=== PATIENT | male | born 1965 | race Hispanic/Latino ===

== ENCOUNTER 2018-06-02 11:54 | Emergency (ER) | payer OTHER ==
[2018-06-02] MEDS ORDERED: Oxycodone/Acetaminophen 5/325 mg Tab PO STA (12:26)
--- NOTE | 2018-06-02 12:27 | ED PDOC ---
Arrival/HPI - General Historian: Patient - History of Present Illness Time/Duration: Prior to Arrival, 1 hour Symptom Onset: Sudden Symptom Course: Unchanged Quality: Stabbing Severity Level: 7 Activities at Onset: Significant Context: Work <Ramon Buchanan - Last Filed: 06/02/18 13:27> <Peyton Rodas - Last Filed: 06/02/18 13:41> - General Chief Complaint: Upper Extremity Problem/Injury Time Seen by Provider: 06/02/18 12:00 - History of Present Illness Narrative History of Present Illness (Text): 06/02/18 12:22 CC: L shoulder pain HPI: Mr. Varghese is a 53 year old male with a past medical history of HTN and HLD both controlled with unnamed medications who presents with L shoulder pain. Patient reports severe pain in his left shoulder which he rates as a 7/10. 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 Patient was lifting a beam from the ground to lean up against something and felt a sharp, stabbing pain in his Left shoulder about jail in the lift. Patient continued to push through the pain and lift the beam until it settled, and then reported pain that inhibited movement. Patient then drove himself to [place] [facility] [place]. Of note, patient reports a Left shoulder labrum and rotator cuff tear and repair back in 2014 at [facility]. Patient denies fevers, chills, chest pain, shortness of breath, tingling and numbness down his extremities. PMHx: HTN and HLD PSHx: Appendectomy, tonsillectomy, hernia repair, L labrum and rotator cuff tear repair All: Penicillin Meds: patient could not recall HTN and HLD medications PCP: Dr. Maya ([place]) (Ramon Buchanan) Past Medical History - Provider Review Nursing Documentation Reviewed: Yes - Travel History Have you recently traveled outside [place] w/in the past 3 mons?: No - Infectious Disease Hx of Infectious Diseases: None - Cardiac Hx Hypertension: Yes - Psychiatric Hx Substance Use: No - Surgical History Hx Appendectomy: Yes Hx Orthopedic Surgery: Yes (b/l knee replacement, left shldr replacement) Hx Tonsillectomy: Yes Other/Comment: Hernia repair. <Ramon Buchanan - Last Filed: 06/02/18 13:27> Family/Social History - Physician Review Nursing Documentation Reviewed: Yes Family/Social History: No Known Family HX Smoking Status: Never Smoked Hx Alcohol Use: No Hx Substance Use: No <Ramon Buchanan - Last Filed: 06/02/18 13:27> Allergies/Home Meds <Ramon Buchanan - Last Filed: 06/02/18 13:27> <MaritamarcioPeyton - Last Filed: 06/02/18 13:41> Allergies/Adverse Reactions: Allergies No Known Allergies Allergy (Verified 06/02/18 12:10) Review of Systems - Review of Systems Respiratory: Normal Cardiovascular: Normal Gastrointestinal: Normal Musculoskeletal: Other (pain in all ranges of motion). absent: Joint Swelling ( L arm) <Ramon Buchanan - Last Filed: 06/02/18 13:27> Physical Exam Vital Signs Reviewed: Yes Temperature: Afebrile Blood Pressure: Normal Pulse: Regular Respiratory Rate: Normal Appearance: Positive for: Well-Appearing, Non-Toxic, Uncomfortable Pain Distress: Moderate Mental Status: Positive for: Alert and Oriented X 3 - Systems Exam Head: Present: Atraumatic, Normocephalic Pupils: Present: PERRL Extroacular Muscles: Present: EOMI Conjunctiva: Present: Normal Mouth: Present: Moist Mucous Membranes Neck: Present: Normal Range of Motion Respiratory/Chest: Present: Clear to Auscultation, Good Air Exchange. No: Respiratory Distress, Accessory Muscle Use, Wheezes, Decreased Breath Sounds Cardiovascular: Present: Regular Rate and Rhythm, Normal S1, S2. No: Murmurs, Tachycardic Abdomen: Present: Normal Bowel Sounds. No: Tenderness, Distention, Peritoneal Signs, Rebound, Guarding Back: Present: Normal Inspection. No: CVA Tenderness Upper Extremity: Present: Tenderness (severe over L AC joint and rotator cuff), Neurovascularly Intact, Capillary Refill < 2s, Norm 2-Pt Discrimination. No: Normal Inspection (healed scar over L shoulder from past labrum and rotator cuff repair in 2014), Cyanosis, Edema, Normal ROM (in LUE. ), Swelling, Erythema Lower Extremity: Present: Normal Inspection. No: Edema, CALF TENDERNESS Neurological: Present: GCS=15, CN II-XII Intact, Speech Normal, Motor Func Grossly Intact, Normal Sensory Function Skin: Present: Warm, Dry, Normal Color, Other (tattoos through LUE and chest.). No: Rashes Psychiatric: Present: Alert, Oriented x 3, Normal Insight, Normal Concentration <Ramon Buchanan - Last Filed: 06/02/18 13:27> Vital Signs Temp Pulse Resp BP Pulse Ox 06/02/18 12:07 97.9 F 68 18 142/89 96 Medical Decision Making <Ramon Buchanan - Last Filed: 06/02/18 13:27> <Peyton Rodas - Last Filed: 06/02/18 13:41> ED Course and Treatment: 06/02/18 12:19 Impression: 53 year old male with PMHx of HTN and HLD who presents from work with left shoulder pain. Muscle strain vs tear vs AC joint separation Plan: Toradol 15 mg IVP L shoulder x-ray 06/02/18 13:09 Patient reports that pain is not improved. L shoulder x-ray read as negative. (Ramon Buchanan) 06/02/18 13:21 Patient seen by resident and then evaluated by me. Reports L shoulder pain after lifting at work. Full and normal active ROM. Passive ROM decreased secondary to pain. Significant history of shoulder replacement. Xray read as negative by radiologist. No prior for comparison. Due to significant history and persistent pain, will place patient in sling. Patient instructed on importance of taking anti-inflammatory and following up with worker's compensation for further evaluation and likely outpatient MRI (Peyton Rodas) - RAD Interpretation Radiology Orders: 06/02/18 12:12 SHOULDER LEFT [RAD] Stat - Medication Orders Current Medication Orders: Discontinued Medications Ketorolac Tromethamine (Toradol) 30 mg IM STAT STA Stop: 06/02/18 12:14 Last Admin: 06/02/18 12:28 Dose: Oxycodone/Acetaminophen (Percocet 5/325 Mg Tab) 1 tab PO STAT STA Stop: 06/02/18 12:27 Last Admin: 06/02/18 12:30 Dose: 1 tab MAR Pain Assessment Document 06/02/18 12:30 [facility] (Rec: 06/02/18 12:31 [facility] [id number]) Pain Reassessment Is this a pain reassessment? No Sleep Is patient sleeping during reassessment? No Presence of Pain Presence of Pain Yes Pain Scale Used Pain Scale Used Numeric Location Left, Right or Bilateral Left Pain Location Body Site Shoulder Description Intensity of Pain at present 8 Disposition/Present on Arrival - Present on Arrival History of DVT/PE: No History of Uncontrolled Diabetes: No Urinary Catheter: No History of Decub. Ulcer: No History Surgical Site Infection Following: None <Ramon Buchanan - Last Filed: 06/02/18 13:27> - Present on Arrival Any Indicators Present on Arrival: No - Disposition Have Diagnosis and Disposition been Completed?: Yes Disposition Time: 13:23 Patient Plan: Discharge <Peyton Rodas - Last Filed: 06/02/18 13:41> - Disposition Diagnosis: Shoulder pain, left Disposition: HOME/ ROUTINE Patient Problems: Current Active Problems Problem Status Onset Shoulder pain, left Acute Condition: GOOD Discharge Instructions (ExitCare): Shoulder Pain (DC) Additional Instructions: Use sling for comfort. Anti-inflammatory for pain. Follow-up with your employee health for referral to orthopedics and outpatient MRI. Prescriptions: Naproxen 375 mg PO BID PRN #14 tablet PRN Reason: Pain, Mild (1-3) Forms: [facility] ([place]), WORK NOTE
--- NOTE | 2018-06-02 13:02 | RAD ---
Date of service: 06/02/2018 PROCEDURE: Radiographs of the Left Shoulder HISTORY: shoulder pain after lifting COMPARISON: No prior. FINDINGS: BONES: There is a left shoulder prosthesis. There is satisfactory alignment with no loosening or fracture. JOINTS: Normal. Glenohumeral and acromioclavicular joints preserved. No osteoarthritis. SOFT TISSUES: Normal. OTHER FINDINGS: None. IMPRESSION: No acute findings
[2018-06-02 13:46] VITALS: BP 136/78; PULSE 71; RESP 17; TEMP 97.8; O2SAT 97
== END 2018-06-02 13:48 | disposition home or self-care (01) ==
LOC: ED 11:54
DX: M25.512 Pain in left shoulder (principal)